=== PATIENT | female | born 1935 | race Two or more races ===

== ENCOUNTER → 2017-06-07 | Outpatient (CLI) | payer OTHER | LOC: BHCLAF 14:00 | PROVIDERS: ATTEND Internal Medicine Cardiovascular Disease | DX: I48.91 Unspecified atrial fibrillation (principal); I05.9 Rheumatic mitral valve disease, unspecified | CPT/HCPCS: 93005-PO ==

== ENCOUNTER → 2018-12-12 | Outpatient (CLI) | payer OTHER | LOC: BRMIMAGING 14:39 | PROVIDERS: ATTEND Family Medicine | DX: M81.0 Age-related osteoporosis without current pathological fracture (principal); Z78.0 Asymptomatic menopausal state; M85.80 Other specified disorders of bone density and structure, unspecified site ==

== ENCOUNTER → 2019-03-04 | Outpatient (CLI) | payer OTHER | DX: I05.9 Rheumatic mitral valve disease, unspecified (principal); I07.9 Rheumatic tricuspid valve disease, unspecified; I48.91 Unspecified atrial fibrillation ==